=== PATIENT | female | born 1980 | race Caucasian/White ===

== ENCOUNTER 2016-12-10 10:41 | Emergency (ER) | payer OTHER ==
[~2016-12-10] VITALS: Ht 157.5 cm; Wt 68.7 kg
[~2016-12-10 10:41] MED LIST: FERR-252 PO; PREN1SGL25 PO
[2016-12-10 10:48] VITALS: BP 114/72
--- NOTE | 2016-12-10 11:09 | NUR ---
PT AMBULATED TO BED 6.
--- NOTE | 2016-12-10 11:11 | NUR ---
35F BIB SELF C/O BELOW RT 5TH DIGIT HAND PAIN, NON-RADIATING, BURNING, 3/10 X 1 HR PRIOR TO ARRIVAL TO ER TODAY; RT RADIAL PULSE PALPABLE, RT CAP REFILL IMMEDIATE, NO LOSS OF SENSATION TO RT HAND AT THIS TIME; PT STATES CUT HAND WITH GLASS WHILE WASHING DISHES TODAY; OPEN WOUND, NO ACTIVE BLEEDING NOTED TO SITE AT THIS TIME; PT AA&OX4, PERRLA, BL LUNG SOUNDS CLEAR, RR EVEN/UNLABORED, SKIN IS WARM/DRY AT THIS TIME; PT STATES NO N/V/D AT THIS TIME; STEADY GAIT; PT RESTING IN BED WITH HOB ELEVATED AND IN LOWEST POSITION; POSITIONED FOR COMFORT; ER MD MADE AWARE OF STATUS. WILL CONTINUE TO MONITOR.
--- NOTE | 2016-12-10 11:30 | NUR ---
ER MD DR. NELSON EVALUATING PT AT BEDSIDE.
[2016-12-10] MEDS ORDERED: LIDOCAINE 1% 500 MG/50 ML VIAL INJ ONE (11:35)
[2016-12-10] MEDS ORDERED: LIDOCAINE 1% ED 50 ML ONE (11:44)
[2016-12-10] MEDS ORDERED: NEOMYCIN/POLYMYXIN/BACITRACIN OPTH OINT 3.5 GM TUBE OP SCH (11:50)
[2016-12-10] MEDS ORDERED: BACITRACIN OINT 500 UNITS/GM PKT TP ONE (12:00)
[2016-12-10 12:06] VITALS: BP 126/63
--- NOTE | 2016-12-10 12:06 | NUR ---
Patient discharged with v/s stable. Written and verbal after care instructions given and explained. Patient verbalized understanding. Ambulatory with to car. All questions addressed prior to discharge. Advised to follow up with PMD.
== END 2016-12-10 12:06 | disposition home or self-care (01) ==
LOC: MED 10:41
DX: S61.217A Laceration without foreign body of left little finger without damage to nail, initial encounter (principal); Z79.899 Other long term (current) drug therapy; W25.XXXA Contact with sharp glass, initial encounter; Y93.G1 Activity, food preparation and clean up; Y92.89 Other specified places as the place of occurrence of the external cause; Y99.8 Other external cause status
CPT/HCPCS: 12001; 90471; 90715; 99283; J2001

== ENCOUNTER 2016-12-20 16:05 | Emergency (ER) | payer OTHER ==
[~2016-12-20] VITALS: Ht 160 cm; Wt 68.9 kg
--- NOTE | 2016-12-20 16:20 | NUR ---
Note kerry in EDM - 12/20/16 at 1657 by AUSTIN 35 F BIB SELF PT PRESENTS TO ER FOR SUTURE REMOVAL LEFT HAND; SITE DRY, CLEAN, AND SUTURES INTACT; SKIN IS PINK/WARM/DRY; AOX4 WITH EVEN AND STEADY GAIT; RR ARE EVEN AND UNLABORED; PATIENT STATES PAIN OF 0/10 AT THIS TIME; VSS; PATIENT POSITIONED FOR COMFORT; ER MD MADE AWARE OF PT STATUS.
[2016-12-20 16:21] VITALS: BP 125/77
--- NOTE | 2016-12-20 16:21 | NUR ---
Patient to bed 12.
--- NOTE | 2016-12-20 16:23 | NUR ---
35 F BIB SELF PT PRESENTS TO ER FOR SUTURE REMOVAL LEFT HAND; SITE DRY, CLEAN, AND SUTURES INTACT; SKIN IS PINK/WARM/DRY; AOX4 WITH EVEN AND STEADY GAIT; RR ARE EVEN AND UNLABORED; PATIENT STATES PAIN OF 0/10 AT THIS TIME; VSS; PATIENT POSITIONED FOR COMFORT; ER MD MADE AWARE OF PT STATUS.
--- NOTE | 2016-12-20 16:28 | NUR ---
Dr. De Jesus evaluaitng patient at bedside.
--- NOTE | 2016-12-20 16:45 | NUR ---
Patient discharged with v/s stable. Written and verbal after care instructions given and explained. Patient verbalized understanding. Ambulatory with steady gait. All questions addressed prior to discharge. Advised to follow up with PMD.
[2016-12-20 16:46] VITALS: BP 125/77
== END 2016-12-20 16:45 | disposition home or self-care (01) ==
LOC: MED 16:05
DX: S61.210D Laceration without foreign body of right index finger without damage to nail, subsequent encounter (principal); X58.XXXD Exposure to other specified factors, subsequent encounter
CPT/HCPCS: 99281